=== PATIENT | female | born 1955 | race Caucasian/White ===

== ENCOUNTER 2017-12-09 03:47 | Observation (INO) | payer OTHER ==
[~2017-12-09] VITALS: Ht 152.4 cm; Wt 98.0 kg
[2017-12-09 03:50] VITALS: BP 214/94; PULSE 96; RESP 18; TEMP 97.6; O2SAT 96
[2017-12-09] MEDS ORDERED: SODIUM CHLORIDE 0.9% FLUSH 10 ML FLUSH IVF PRN (04:00)
--- NOTE | 2017-12-09 04:57 | PD ---
HPI Chief Complaint: Chest Pain Time Seen by Provider: 04:00 Travel History International Travel<30 days: No Contact w/Intl Traveler<30days: No Traveled to known affect area: No History of Present Illness HPI 62-year-old female presents emergency department for evaluation of chest pain and bilateral arm pain. Fairly complex history of present illness the patient states that she had tightness in her left arm and it switched back and forth between her 2 arms over the past couple days. She states all this started with back pain right between her shoulder blades and then radiated to a tight sensation between her breasts. She also has been having some epigastric pain and shortness of breath. States all this started about a day or 2 ago has been gradually worsening. She states she has had a stress test 10 years ago which was normal she has never seen a heart doctor. Has a history of high blood pressure and high cholesterol non-smoker but morbidly obese. States symptoms are moderate, waxing and waning, location and context as above. PFSH Past Medical History Diminished Hearing: No Gastrointestinal Disorders: Yes (common bile duct stones) Hypertension: Yes Tetanus Vaccination: < 5 Years Influenza Vaccination: Yes ?: Not LMP: menapause Past Surgical History Section: Yes (x2) Cholecystectomy: Yes Gynecologic Surgery: Yes (left breast cyst removal) Other Surgery: Yes (common bile duct stone removal, skin grafts) Social History Alcohol Use: No Tobacco Use: No Substance Use: No Allergies-Medications (Allergen,Severity, Reaction): Coded Allergies: Sulfa (Sulfonamide Antibiotics) (Verified Allergy, Severe, 12/09/17) hives and swelling shrimp (Verified Allergy, Unknown, rashes/hives, 12/09/17) Reported Meds & Prescriptions Reported Meds & Active Scripts Active Reported Losartan-Hydrochlorothiazide 50-12.5 Mg Tab 1 Tab PO DAILY Ursodiol 300 Mg Cap 300 Mg PO BID Review of Systems Except as stated in HPI: all other systems reviewed are Neg Physical Exam Narrative GENERAL: Well-developed, morbidly obese in no obvious distress peer SKIN: Focused skin assessment warm/dry. HEAD: Atraumatic. Normocephalic. EYES: Pupils equal and round. No scleral icterus. No injection or drainage. ENT: No nasal bleeding or discharge. Mucous membranes pink and moist. NECK: Trachea midline. No JVD. CARDIOVASCULAR: Regular rate and rhythm. No murmur appreciated. 2+ bilateral equal pulses in all 4 extrema RESPIRATORY: No accessory muscle use. Clear to auscultation. Breath sounds equal bilaterally. GASTROINTESTINAL: Abdomen soft, non-tender, nondistended. Hepatic and splenic margins not palpable. MUSCULOSKELETAL: No obvious deformities. No clubbing. No cyanosis. No edema. NEUROLOGICAL: Awake and alert. No obvious cranial nerve deficits. Motor grossly within normal limits. Normal speech. PSYCHIATRIC: Appropriate mood and affect; insight and judgment normal. Data Data Last Documented VS Vital Signs Date Time Temp Pulse Resp B/P (MAP) Pulse Ox O2 Delivery O2 Flow Rate FiO2 12/09/17 04:59 72 18 145/79 (101) 98 Room Air 12/09/17 03:50 97.6 Orders Orders Electrocardiogram (12/09/17 04:00) Ckmb (Isoenzyme) Profile (12/09/17 04:00) Complete Blood Count With Diff (12/09/17 04:00) Comprehensive Metabolic Panel (12/09/17 04:00) Magnesium (Mg) (12/09/17 04:00) Prothrombin Time / Inr (Pt) (12/09/17 04:00) Act Partial Throm Time (Ptt) (12/09/17 04:00) Troponin I (12/09/17 04:00) Chest, Single Ap (12/09/17 04:00) Ecg Monitoring (12/09/17 04:00) Iv Access Insert/Monitor (12/09/17 04:00) Oximetry (12/09/17 04:00) Oxygen Administration (12/09/17 04:00) Sodium Chloride 0.9% Flush (Ns Flush) (12/09/17 04:00) Cta Thor Abd Aorta W Iv C W3d (12/09/17 ) Iohexol 350 Inj (Omnipaque 350 Inj) (12/09/17 06:15) Admit Order (Ed Use Only) (12/09/17 ) Labs Laboratory Tests Test 12/09/17 04:50 White Blood Count 9.3 TH/MM3 Red Blood Count 4.68 MIL/MM3 Hemoglobin 13.8 GM/DL Hematocrit 41.3 % Mean Corpuscular Volume 88.1 FL Mean Corpuscular Hemoglobin 29.4 PG Mean Corpuscular Hemoglobin Concent 33.4 % Red Cell Distribution Width 14.9 % Platelet Count 265 TH/MM3 Mean Platelet Volume 8.8 FL Neutrophils (%) (Auto) 64.0 % Lymphocytes (%) (Auto) 21.0 % Monocytes (%) (Auto) 12.1 % Eosinophils (%) (Auto) 2.3 % Basophils (%) (Auto) 0.6 % Neutrophils # (Auto) 5.9 TH/MM3 Lymphocytes # (Auto) 1.9 TH/MM3 Monocytes # (Auto) 1.1 TH/MM3 Eosinophils # (Auto) 0.2 TH/MM3 Basophils # (Auto) 0.1 TH/MM3 CBC Comment DIFF FINAL Differential Comment Prothrombin Time 10.0 SEC Prothromb Time International Ratio 1.0 RATIO Activated Partial Thromboplast Time 24.7 SEC Blood Urea Nitrogen 19 MG/DL Creatinine 0.73 MG/DL Random Glucose 94 MG/DL Total Protein 8.2 GM/DL Albumin 4.1 GM/DL Calcium Level 9.2 MG/DL Magnesium Level 2.2 MG/DL Alkaline Phosphatase 64 U/L Aspartate Amino Transf (AST/SGOT) 11 U/L Alanine Aminotransferase (ALT/SGPT) 17 U/L Total Bilirubin 0.3 MG/DL Sodium Level 139 MEQ/L Potassium Level 4.2 MEQ/L Chloride Level 105 MEQ/L Carbon Dioxide Level 27.1 MEQ/L Anion Gap 7 MEQ/L Estimat Glomerular Filtration Rate 81 ML/MIN Total Creatine Kinase 48 U/L Troponin I LESS THAN 0.02 NG/ML MDM Medical Decision Making Medical Screen Exam Complete: Yes Emergency Medical Condition: Yes Differential Diagnosis ACS, MT, dissection is possible but unlikely, anxiety. Narrative Course Patient room to the emergency department, her migrating extremity pain as well as her back pain radiating her chest as meet having cause for concern for dissection. This was discussed with the patient I recommended her for a CTA of aorta. CT ureter showed no significant pathology, the aorta was negative. Initial EKG nonischemic, troponin negative. Discussed results with the patient and I recommended her for chest pain center. She is agreeable. Chest pain-free on admission. Diagnosis Primary Impression: Chest pain Admitting Information Admitting Physician Requests: Observation Disposition: 01 DISCHARGE HOME Condition: Stable Chris Trinidad MD Dec 09, 2017 04:57
[2017-12-09 04:59] VITALS: BP 145/79; PULSE 72; RESP 18; O2SAT 98
[2017-12-09 05:13] LABS: AUTOMATED NEUTROPHIL # 5.9 TH/MM3 (1.8-7.7); BASOPHIL # 0.1 TH/MM3 (0-0.2); BASOPHIL % 0.6 % (0.0-2.0); EOSINOPHIL # 0.2 TH/MM3 (0-0.4); EOSINOPHIL % 2.3 % (0.0-4.0); HEMATOCRIT 41.3 % (35.0-46.0); HEMOGLOBIN 13.8 GM/DL (11.6-15.3); LYMPHOCYTE # 1.9 TH/MM3 (1.0-4.8); MEAN CELL VOLUME 88.1 FL (80.0-100.0); MEAN CORPUSCULAR HEMOGLOBIN 29.4 PG (27.0-34.0); MEAN CORPUSCULAR HGB CONC 33.4 % (32.0-36.0); MEAN PLATELET VOLUME 8.8 FL (7.0-11.0); MONO % 12.1 % (0.0-8.0); MONOCYTE # 1.1 TH/MM3 (0-0.9); PLATELET COUNT 265 TH/MM3 (150-450); RED BLOOD COUNT 4.68 MIL/MM3 (4.00-5.30); RED CELL DISTRIBUTION WIDTH 14.9 % (11.6-17.2); WHITE BLOOD COUNT 9.3 TH/MM3 (4.0-11.0)
--- NOTE | 2017-12-09 05:31 | RADRPT ---
EXAM DATE/TIME: 12/09/2017 04:29 [facility] COMPARISON: No previous studies available for comparison. INDICATIONS : Chest pain. MEDICAL HISTORY : Hypertension. SURGICAL HISTORY : Cholecystectomy. ENCOUNTER: Initial ACUITY: 1 day PAIN SCORE: 8/10 LOCATION: Left chest FINDINGS: A single view of the chest demonstrates the lungs to be symmetrically hypoinflated but clear. Account ing for low lung volume the heart size is normal. Some degenerative spurring of the dorsal spine. Oss eous structures are otherwise intact. CONCLUSION: Hypoinflation with no acute cardiac pulmonary process. Sajan Power MD on December 09, 2017 at 5:29 Board Certified Radiologist. This report was verified electronically.
[2017-12-09 05:36] LABS: ALBUMIN 4.1 GM/DL (3.4-5.0); ALT (GPT) 17 U/L (10-53); AST (GOT) 11 U/L (15-37); BICARBONATE 27.1 MEQ/L (21.0-32.0); BLOOD UREA NITROGEN 19 MG/DL (7-18); CALCIUM 9.2 MG/DL (8.5-10.1); CHLORIDE 105 MEQ/L (98-107); CREATININE 0.73 MG/DL (0.50-1.00); GLOMERULAR FILTRATION RATE 81 ML/MIN (>89); GLUCOSE,RANDOM 94 MG/DL (74-106); MAGNESIUM 2.2 MG/DL (1.5-2.5); SODIUM (NA) 139 MEQ/L (136-145)
[2017-12-09 05:40] LABS: ALKALINE PHOSPHATASE 64 U/L (45-117); TOTAL BILIRUBIN ADULT 0.3 MG/DL (0.2-1.0); TOTAL PROTEIN 8.2 GM/DL (6.4-8.2); TROPONIN I LESS THAN 0.02 NG/ML (0.02-0.05)
[2017-12-09] MEDS ORDERED: IOHEXOL 350 MG/ML 10 ML VIAL (for RAD DIAG) IVCONTRAST ONE (06:15)
--- NOTE | 2017-12-09 06:48 | RADRPT ---
EXAM DATE/TIME: 12/09/2017 05:59 [facility] COMPARISON: No previous studies available for comparison. INDICATIONS : Chest, back and abdomen pain; rule out aortic dissection. IV CONTRAST: 99 cc Omnipaque 350 (iohexol) IV RADIATION DOSE: 9.63 CTDIvol (mGy) MEDICAL HISTORY : Hypertension. Gallstones SURGICAL HISTORY : Cholecystectomy. section. ENCOUNTER: Initial ACUITY: 1 day PAIN SCALE: 8/10 LOCATION: chest abdomen TECHNIQUE: Volumetric scanning was performed using a multi-row detector CT scanner. The data was post processed with a variety of visualization algorithms including full volume maximum intensity projection, multi -planar sliding thin slab reformation, curved planar reformation, and surface rendering techniques. Using automated exposure control and adjustment of the mA and/or kV according to patient size, radiat ion dose was kept as low as reasonably achievable to obtain optimal diagnostic quality images. DICOM format image data is available electronically for review and comparison. FINDINGS: LUNGS: There is no consolidation or pneumothorax. No concerning pulmonary nodule is visualized. No pleural fluid is present. MEDIASTINUM: No abnormally enlarged lymph nodes by CT criteria. No axillary or hilar abnormalities are identified. Granulomatous type calcifications in the left hilar and subcarinal lymph nodes ABDOMEN: The liver and spleen are free of focal defects. Granulomatous type calcifications in the spleen. Josette ent is status post cholecystectomy. Prominent extrahepatic biliary tree with the CBD measuring 1 cm i n diameter is likely associated with prior cholecystectomy. The adrenal glands are normal. The kidney s demonstrate no evidence of solid renal mass or hydronephrosis. Benign-appearing 1.6 cm right renal cortical cyst. No free fluid or abdominal masses are identified. No para-aortic adenopathy is seen. D iverticular disease of the descending colon without diverticulitis. PELVIS: No evidence of free fluid or pelvic mass. No abnormally enlarged inguinal or retroperitoneal lymph no harman are present. The bladder is unremarkable. THORACIC AORTA: The thoracic aortic root is normal with normal branching of the great vessels. There is no evidence of aneurysm or dissection. ABDOMINAL AORTA: The aorta is normal in caliber without aneurysm or dissection. The renal arteries are patent bilater ally. The proximal celiac and superior mesenteric arteries are patent and normal in diameter. PELVIC VESSELS: The internal iliac and external iliac vessels are patent without aneurysm or stenosis. CONCLUSION: 1. Normal radiographic appearance of the thoracoabdominal and pelvic vasculature without aneurysmal d isease or dissection. 2. Patient is status post cholecystectomy with expected prominence of the extra hepatic biliary tree. 3. Diverticular disease of the descending colon without diverticulitis. 4. No granulomatous disease. Sajan Power MD on December 09, 2017 at 6:42 Board Certified Radiologist. This report was verified electronically.
[2017-12-09 08:00] VITALS: BP 136/79; PULSE 85; RESP 20; O2SAT 96
[2017-12-09] MEDS ORDERED: LOSA50TA2 PO (08:18)
[2017-12-09] MEDS ORDERED: URSO300C2 PO (08:18)
[2017-12-09 09:00] VITALS: BP 141/78; PULSE 78; RESP 18; O2SAT 98
[2017-12-09] MEDS ORDERED: URSODIOL 300 MG CAP PO SCH (09:00)
[2017-12-09] MEDS ORDERED: HYDROCHLOROTHIAZIDE 12.5 MG CAP PO SCH (09:00)
[2017-12-09] MEDS ORDERED: ACETAMINOPHEN/HYDROcodone 325 MG/7.5 MG TAB PO PRN (09:00)
[2017-12-09] MEDS ORDERED: ACETAMINOPHEN 500 MG CPLT PO PRN (09:00)
[2017-12-09] MEDS ORDERED: ONDANSETRON HCL 4 MG/2 ML VIAL IV PUSH PRN (09:00)
[2017-12-09] MEDS ORDERED: LOSARTAN 50 MG TAB PO SCH (09:00)
[2017-12-09] MEDS ORDERED: ASPIRIN 325 MG TAB PO SCH (09:00)
[2017-12-09] MEDS ORDERED: IBUPROFEN 600 MG TAB PO ONE (09:15)
[2017-12-09 09:36] VITALS: BP 145/89; PULSE 82; RESP 16; TEMP 97.3; O2SAT 97
--- NOTE | 2017-12-09 09:48 | HHI.HP ---
HPI Primary Care Physician Non-Staff Chief Complaint CHEST PAIN History of Present Illness This is a 62 year old with history of hypertension that presents to ED with a complaint of chest discomfort and arm pains. States that yesterday morning her right arm began to hurt. It lasted for about 5 hours. Also her left arm hurt but it was not lasting as long but was intermittent during this 5 hours. It did not seem to worsen with movement. Then around 9:00 last evening while she sitting at home watching television she developed a left shoulder pain that radiated into the left upper chest. She found nothing really to worsen after states it still present. Nothing seemed to help. Denies history of CAD. She states she had a stress test about 10 years ago. Attempted a treadmill but was able to complete it had to be converted to chemical but states that it was normal. Denies recent illness. Denies fevers or chills. Denies associated shortness of breath, nausea, or diaphoresis. Review of Systems General: Patient denies fevers, chills, and recent travel HEENT: Patient denies headache, sore throat, difficulty swallowing. Cardiovascular: Has the chest discomfort as mentioned above. Denies sensation of heart beating rapidly or irregularly. No syncope. Denies diaphoresis. Respiratory: Denies shortness of breath or inspirational chest discomfort. Denies coughing wheezing or hemoptysis. GI: Patient denies nausea, vomiting, diarrhea, abdominal pain, bloody stools. Musculoskeletal: Bilateral arm pains. Left shoulder pain rating into left upper chest. Patient denies joint pain or edema. Denies calf pain or edema. Neurovascular: Patient denies numbness, tingling, weakness in extremities. Denies headache. Endocrine: Denies polyuria and polydipsia. Hematologic: Denies easy bruising. Skin: Denies rash or itching. Past Family Social History Allergies: Coded Allergies: Sulfa (Sulfonamide Antibiotics) (Verified Allergy, Severe, 12/09/17) hives and swelling shrimp (Verified Allergy, Unknown, rashes/hives, 12/09/17) Past Medical History Hypertension. Gallstones. Denies hyperlipidemia, diabetes, and known CAD. Past Surgical History Cholecystectomy. . Reported Medications Reported Meds & Active Scripts Active Reported Losartan-Hydrochlorothiazide 50-12.5 Mg Tab 1 Tab PO DAILY Ursodiol 300 Mg Cap 300 Mg PO BID Active Ordered Medications Current Medications Medications (Trade) Dose Ordered Sig/Constanza Route Start Time Stop Time Status Last Admin (NS Flush) 2 ml UNSCH PRN IVF 12/09/17 04:00 (Actigall) 300 mg BID PO 12/09/17 09:00 (Cozaar) 50 mg DAILY PO 12/09/17 09:00 (Microzide) 12.5 mg DAILY PO 12/09/17 09:00 (Tylenol) 500 mg Q4H PRN PO 12/09/17 09:00 ([place] 7.5-325 Mg) 1 tab Q4H PRN PO 12/09/17 09:00 (Zofran Inj) 4 mg Q6H PRN IV PUSH 12/09/17 09:00 (Aspirin) 325 mg DAILY PO 12/09/17 09:00 Family History Her father had an HI in his 60s. Social History Non-smoker. Denies alcohol or illicit drug use. Physical Exam Vital Signs Vital Signs Date Time Temp Pulse Resp B/P (MAP) Pulse Ox O2 Delivery O2 Flow Rate FiO2 12/09/17 09:36 97.3 82 16 145/89 (107) 97 12/09/17 09:11 12/09/17 09:00 78 18 141/78 (99) 98 Room Air 12/09/17 08:15 96 Room Air 12/09/17 08:00 85 20 136/79 (98) 96 Room Air 12/09/17 04:59 72 18 145/79 (101) 98 Room Air 12/09/17 04:59 98 Room Air 12/09/17 03:50 97.6 96 18 214/94 (134) 96 Physical Exam GENERAL: This is a well-nourished, well-developed patient, in no apparent distress. Patient speaks in clear complete sentences. Patient is pleasant. HEENT: Head is atraumatic and normocephalic. Neck is supple without lymphadenopathy and trachea is midline. No JVD or carotid bruits. CARDIOVASCULAR: Regular rate and rhythm without murmurs, gallops, or rubs. RESPIRATORY: Clear to auscultation. Breath sounds equal bilaterally. No wheezes , rales, or rhonchi. Left upper chest wall is tender. No use of accessory muscles. GASTROINTESTINAL: Abdomen is nontender, nondistended. Abdomen soft. No obvious pulsatile mass or bruit. No CVA tenderness. Strong femoral pulses bilaterally. Normal bowel sounds in all quadrants. MUSCULOSKELETAL: There is tenderness on palpating left supraspinatus region as well as left trapezium. Also some discomfort when palpating along the back beneath the left scapula. Discomfort is worsened with movement of her left arm across the chest. Patient is moving upper and lower extremities freely. No calf tenderness or edema, no Homans sign. Strong pulses in upper and lower extremities. Aircraft Engine Mechanic strength bilaterally. NEUROLOGICAL: Patient is alert and oriented. Cranial nerves 2-12 are grossly intact. No focal deficits and speech is clear. Strong electroplater automatic strength bilaterally. SKIN: No rash and turgor is normal. Laboratory Laboratory Tests Test 12/09/17 04:50 White Blood Count 9.3 Red Blood Count 4.68 Hemoglobin 13.8 Hematocrit 41.3 Mean Corpuscular Volume 88.1 Mean Corpuscular Hemoglobin 29.4 Mean Corpuscular Hemoglobin Concent 33.4 Red Cell Distribution Width 14.9 Platelet Count 265 Mean Platelet Volume 8.8 Neutrophils (%) (Auto) 64.0 Lymphocytes (%) (Auto) 21.0 Monocytes (%) (Auto) 12.1 Eosinophils (%) (Auto) 2.3 Basophils (%) (Auto) 0.6 Neutrophils # (Auto) 5.9 Lymphocytes # (Auto) 1.9 Monocytes # (Auto) 1.1 Eosinophils # (Auto) 0.2 Basophils # (Auto) 0.1 CBC Comment DIFF FINAL Differential Comment Prothrombin Time 10.0 Prothromb Time International Ratio 1.0 Activated Partial Thromboplast Time 24.7 Blood Urea Nitrogen 19 Creatinine 0.73 Random Glucose 94 Total Protein 8.2 Albumin 4.1 Calcium Level 9.2 Magnesium Level 2.2 Alkaline Phosphatase 64 Aspartate Amino Transf (AST/SGOT) 11 Alanine Aminotransferase (ALT/SGPT) 17 Total Bilirubin 0.3 Sodium Level 139 Potassium Level 4.2 Chloride Level 105 Carbon Dioxide Level 27.1 Anion Gap 7 Estimat Glomerular Filtration Rate 81 Total Creatine Kinase 48 Troponin I LESS THAN 0.02 Result Diagram: 12/09/1744912/09/17449 Course EKG sinus rhythm without significant ST segment depressions or elevations. Caprini VTE Risk Assessment Caprini VTE Risk Assessment: Mod/High Risk (score >= 2) Caprini Risk Assessment Model Point Value = 1 Point Value = 2 Point Value = 3 Point Value = 5 Age 41-60 Minor surgery BMI > 25 kg/m2 Swollen legs Varicose veins or History of unexplained or recurrent spontaneous Oral contraceptives or hormone replacement Sepsis (< 1 month) Serious lung disease, including pneumonia (< 1 month) Abnormal pulmonary function Acute myocardial infarction Congestive heart failure (< 1 month) History of inflammatory bowel disease Medical patient at bed rest Age 61-74 Arthroscopic surgery Major open surgery (> 45 min) Laparoscopic surgery (> 45 min) Malignancy Confined to bed (> 72 hours) Immobilizing plaster cast Central venous access Age >= 75 History of VTE Family history of VTE Factor V Leiden Prothrombin [id number] Lupus anticoagulant Anticardiolipin antibodies Elevated serum homocysteine Heparin-induced thrombocytopenia Other congenital or acquired thrombophilia Stroke (< 1 month) Elective arthroplasty Hip, pelvis, or leg fracture Acute spinal cord injury (< 1 month) Prophylaxis Regimen Total Risk Factor Score Risk Level Prophylaxis Regimen 0-1 Low Early ambulation 2 Moderate Order ONE of the following: *Sequential Compression Device (SCD) *Heparin 5000 units SQ BID 3-4 Higher Order ONE of the following medications: *Heparin 5000 units SQ TID *Enoxaparin/Lovenox 40 mg SQ daily (WT < 150 kg, CrCl > 30 mL/min) *Enoxaparin/Lovenox 30 mg SQ daily (WT < 150 kg, CrCl > 10-29 mL/min) *Enoxaparin/Lovenox 30 mg SQ BID (WT < 150 kg, CrCl > 30 mL/min) AND/OR *Sequential Compression Device (SCD) 5 or more Highest Order ONE of the following medications: *Heparin 5000 units SQ TID (Preferred with Epidurals) *Enoxaparin/Lovenox 40 mg SQ daily (WT < 150 kg, CrCl > 30 mL/min) *Enoxaparin/Lovenox 30 mg SQ daily (WT < 150 kg, CrCl > 10-29 mL/min) *Enoxaparin/Lovenox 30 mg SQ BID (WT < 150 kg, CrCl > 30 mL/min) AND *Sequential Compression Device (SCD) Assessment and Plan Assessment and Plan * Chest pain: Her discomfort seems atypical. Likely musculoskeletal. She does have risk factors for heart disease. She will be seen by Dr. Munoz cardiology in the Chest pain center. She had a chest discomfort that radiated from the left shoulder that lasted for greater than 12 hours and troponin and EKG was okay. She at this point will have a Lexiscan if it is nonischemic will be discharged home with instructions to follow-up with PCP. Return to ED for interval issues. * Hypertension: Continue current medication. Patient is stable at this time. She is agreeable to this plan. Zack Grimes Dec 09, 2017 09:48
--- NOTE | 2017-12-09 12:03 | RADRPT ---
EXAM DATE/TIME: 12/09/2017 10:21 [facility] COMPARISON: No previous studies available for comparison. INDICATIONS : Bilateral arm pain radiating to center chest. Angina. DOSE: 26.6 mCi Tc99m Myoview at stress. 8.8 mCi Tc99m Myoview at rest. 0.4 mg Lexiscan STRESS SYMPTOMS: Chest pressure and headache. EJECTION FRACTION: > 70% MEDICAL HISTORY : Hypertension. SURGICAL HISTORY : Cholecystectomy. ENCOUNTER: Initial ACUITY: 2 days PAIN SCALE: 6/10 LOCATION: Substernal chest TECHNIQUE: The patient underwent pharmacologic stress with infusion of prescribed dose. Continuous ECG tracing was monitored during stress. Gated SPECT imaging was performed after stress and conventional SPECT i maging was performed at rest. The examination was performed on a SPECT/CT scanner, both attenuation and non-corrected datasets were reviewed. FINDINGS: DISTRIBUTION: The maximum perfused segment at stress is in the septal wall. PERFUSION STUDY: The pattern of perfusion at stress is within normal limits. GATED STUDY: There is intact wall motion and thickening without hypokinetic or dyskinetic segments. CONCLUSION: Normal examination. RISK CATEGORY: Low risk Luz Elena Dean MD on December 09, 2017 at 11:59 Board Certified Radiologist. This report was verified electronically.
--- NOTE | 2017-12-09 12:40 | HHI.DCPOC ---
Discharge Care Plan Diagnosis: (1) Chest pain, atypical (2) Hypertension Goals to Promote Your Health * To prevent worsening of your condition and complications * To maintain your health at the optimal level Directions to Meet Your Goals Take your medications as prescribed Follow your dietary instruction Follow activity as directed Keep your appointments as scheduled Take your immunizations and boosters as scheduled If your symptoms worsen call your PCP, if no PCP go to Urgent Care Center or Emergency Room Smoking is Dangerous to Your Health. Avoid second hand smoke Call the 24-hour hour crisis hotline for domestic abuse at Zack Grimes Dec 09, 2017 12:40
--- NOTE | 2017-12-09 13:22 | EKG ---
Date Performed: 12/09/2017 Time Performed: 04:14:21 PTAGE: 62 years EKG: Sinus rhythm WITH SINUS ARRHYTHMIA LOW QRS VOLTAGE IN PRECORDIAL LEADS BORDERLINE ECG NO PREVIOUS TRACING DOCTOR: Yeison Munoz Interpretating Date/Time 12/09/2017 13:21:09
[2017-12-09] MEDS ORDERED: REGADENOSON INJ 0.4 MG/5 ML SYR IV ONE (13:46)
--- NOTE | 2017-12-11 18:57 | TR ---
Date Performed: 12/09/2017 Time Performed: 10:58:58 DOCTOR: Karena Garrison DRUG LIST: CLINICAL HISTORY: REASON FOR TEST: CHEST PAIN REASON FOR ENDING: OBSERVATION: CONCLUSION: Lexiscan stress test was performed under standard four minute protocol. Radionuclid e was injected one minute prior to ending the test. No electrocardiographic abormalities were present to suggest ischemia. Nuclear imaging and interpretation are pending. COMMENTS:
== END 2017-12-09 13:47 | disposition home or self-care (01) ==
LOC: NEPC 03:47 → NEDA 07:38 → NEPFCDU 09:14
DX: R07.89 Other chest pain (principal); R06.02 Shortness of breath; I10 Essential (primary) hypertension; E78.00 Pure hypercholesterolemia, unspecified; M79.602 Pain in left arm; M79.601 Pain in right arm; M54.9 Dorsalgia, unspecified; R10.13 Epigastric pain; E66.01 Morbid (severe) obesity due to excess calories; Z68.41 Body mass index [BMI] 40.0-44.9, adult; M25.512 Pain in left shoulder
CPT/HCPCS: 71045; 71275; 74174; 78452; 80053; 82550; 83735; 84484; 85025; 85610; 85730; 93005; 93017; 99285; A9502; G0378; J2785; Q9967